=== PATIENT | female | born 1950 | race Caucasian/White ===

== ENCOUNTER 2017-04-13 06:56 | Emergency (ER) | payer MEDICARE, OTHER ==
[2017-04-13 07:09] VITALS: RESP 18; TEMP 97.6
[2017-04-13 07:25] LABS: BASOPHILS % (AUTO) 1 % (0-3); EOSINOPHILS % (AUTO) 2 % (0-9); HEMATOCRIT 40 % (35-47); MEAN CORPUSCULAR HGB CONC 35.1 gm/dl (32.0-36.0); MEAN CORPUSCULAR VOLUME 92 fL (81-99); MONOCYTES % (AUTO) 7.7 % (0-12); NEUTROPHILS % (AUTO) 64.5 % (37-80)
[2017-04-13 07:44] LABS: ALBUMIN 3.6 gm/dl (3.4-5.0); ALT 105 IU/L (14-63); CALCIUM 9.8 mg/dl (8.5-10.1); GLOM FILT RATE 81 mL/min (>60); POTASSIUM 3.8 mMol/L (3.5-5.1); SODIUM 134 mMol/L (136-145)
[2017-04-13 09:49] VITALS: O2SAT 93
[2017-04-13 09:51] VITALS: BP 129/83; PULSE 101
== END 2017-04-13 10:00 | disposition home or self-care (01) | DRG 897 ==
LOC: ED 06:56
DX: F10.10 Alcohol abuse, uncomplicated (principal); R06.2 Wheezing; Z59.0 Homelessness; R74.0 Nonspecific elevation of levels of transaminase and lactic acid dehydrogenase [LDH]
CPT/HCPCS: 36415; 71010; 80053; 80307; 85025; 99282; 99285

== ENCOUNTER 2017-04-13 14:55 | Emergency (ER) | payer MEDICARE, OTHER ==
[2017-04-13 15:30] VITALS: BP 121/87; PULSE 98; RESP 22; TEMP 97.6; O2SAT 95
== END 2017-04-13 15:40 | disposition home or self-care (01) | DRG 897 ==
LOC: ED 14:55
DX: F10.10 Alcohol abuse, uncomplicated (principal); R06.2 Wheezing; Z59.0 Homelessness; R74.0 Nonspecific elevation of levels of transaminase and lactic acid dehydrogenase [LDH]
CPT/HCPCS: 99282

== ENCOUNTER 2017-09-10 18:28 | Emergency (ER) | payer MEDICARE, OTHER ==
[2017-09-10 19:04] LABS: BASOPHILS % (AUTO) 1 % (0-3); EOSINOPHILS % (AUTO) 3 % (0-9); HEMATOCRIT 39 % (35-47); MEAN CORPUSCULAR HGB CONC 34.1 gm/dl (32.0-36.0); MEAN CORPUSCULAR VOLUME 93 fL (81-99)
[2017-09-10 19:30] LABS: ALBUMIN 3.2 gm/dl (3.4-5.0); POTASSIUM 3.9 mMol/L (3.5-5.1); THYROID STIMULATING HORMONE 0.227 uIU/ml (0.358-3.740)
[2017-09-10] MEDS ORDERED: ALBUTEROL/IPRATROPIUM 1 VIAL SOL INH ONE (20:14)
[2017-09-10] MEDS ORDERED: ALBUTEROL/IPRATROPIUM 1 VIAL SOL ONE (20:31)
[2017-09-10 20:55] VITALS: PULSE 68; RESP 20; O2SAT 88
[2017-09-10 20:56] VITALS: BP 128/77; TEMP 97.4
[2017-09-10 20:56] LABS: APPEARANCE,URINE Clear; BILIRUBIN,URINE NEGATIVE (NEGATIVE); COLOR,URINE Yellow; GLUCOSE, URINE (UA) NEGATIVE (NEGATIVE); KETONES,URINE NEGATIVE (NEGATIVE); LEUKOCYTE ESTERASE ,URINE NEGATIVE (NEGATIVE); NITRATE,URINE NEGATIVE (NEGATIVE); OCCULT BLOOD,URINE NEGATIVE (NEG-TRACE)
[2017-09-10 21:05] LABS: AMPHETAMINES NEGATIVE (NEGATIVE); METHADONE NEGATIVE (NEGATIVE); OPIATES(OP13) NEGATIVE (NEGATIVE); OXYCODONE(OXY) NEGATIVE (NEGATIVE); PROPOXYPHENE(PPX) NEGATIVE (NEGATIVE); RBC,URINE 0-2 (0-3AV/HPF); TRICYCLIC ANTIDEPRESSANTS POSITIVE (NEGATIVE); WBC,URINE 0-2 (0-5AV/HPF)
[2017-09-10] MEDS ORDERED: PREDNISONE 20 MG TAB PO ONE (22:24)
== END 2017-09-10 22:45 | DRG 897 ==
LOC: ED 18:28
DX: F10.20 Alcohol dependence, uncomplicated (principal); J44.9 Chronic obstructive pulmonary disease, unspecified; F41.9 Anxiety disorder, unspecified; Y90.8 Blood alcohol level of 240 mg/100 ml or more; Z59.0 Homelessness; R05 Cough
CPT/HCPCS: 36415; 71046; 80053; 80305; 80307; 81001; 84443; 85025; 99282; 99283